=== PATIENT | male | born 1975 | race Asian ===

== ENCOUNTER 2020-04-27 16:07 | Emergency (ER) | payer MEDICAID ==
[~2020-04-27] VITALS: Ht 175.3 cm; Wt 68.0 kg
--- NOTE | 2020-04-27 16:15 | NUR ---
ED Nurse Note: Patient walked into the ED with c/o rash that started on the fingers and was moving to his lower abdomen onset 20 days. Denies fever and chills, SOB/. Patient was taking antihistamine tab and cream for the rash. Patient is AAOX4 and ambulatory.
--- NOTE | 2020-04-27 16:20 | NUR ---
ED Nurse Note: ERPA at bedside.
--- NOTE | 2020-04-27 16:36 | Emergency Room Report ---
History of Present Illness General Chief Complaint: Skin Rash/Abscess Source: Patient (Kierra Mora) Present Illness HPI 44-year-old male presents to the emergency department complaining of persistent and progressive itchy rash times approximately 20 days. Patient reports symptoms initially began between his fingers and slowly worked its way up his wrists and is now on his arms chest and inner thighs. Patient reports he has been taking qlwd-aaq-[id number] cortisone cream as well as Zyrtec with no relief of his symptoms. Pt. denies fevers, chills or swollen tender lymph nodes. Denies He denies oral lesions. Denies new medications or body washes or creams. Denies swelling of the lips, tongue , throat or airway. Denies wheezing, or shortness of breath. Denies recent travel, recent illness or ill contacts. denies blisters, oral lesions, or sloughing of the skin (Kierra Mora) Allergies: Coded Allergies: No Known Allergies (Unverified , 04/27/20) COVID-19 Screening Contact w/high risk pt: No Experienced COVID-19 symptoms?: No COVID-19 Testing performed COMMUNITY HEALTH DIRECTOR: No (Kierra Mora) Patient History Past Medical History: see triage record Past Surgical History: none Pertinent Family History: none Reviewed Nursing Documentation: PMH: Agreed; PSxH: Agreed (Kierra Mora) Nursing Documentation-PMH Past Medical History: No Stated History (Kierra Mora) Review of Systems All Other Systems: negative except mentioned in HPI (Kierra Mora) Physical Exam Vital Signs Date Time Temp Pulse Resp B/P (MAP) Pulse Ox O2 Delivery O2 Flow Rate FiO2 04/27/20 16:09 97.9 54 15 140/96 (111) 100 Room Air Sp02 EP Interpretation: reviewed, normal General Appearance: no apparent distress, alert, GCS 15, non-toxic Head: normocephalic, atraumatic Eyes: bilateral eye normal inspection, bilateral eye PERRL ENT: hearing grossly normal, normal voice, other - no oral lesions, no swelling of the lips or tongue Neck: full range of motion Respiratory: chest non-tender, lungs clear, normal breath sounds, no respiratory distress, no accessory muscle use, no wheezing, speaking full sentences, other - NO stridor Cardiovascular #1: regular rate, rhythm, no edema Musculoskeletal: normal range of motion, gait/station normal, non-tender Neurologic: alert, motor strength/tone normal, oriented x3, sensory intact, responsive, speech normal Psychiatric: judgement/insight normal, memory normal Skin: rash - Skin colored papules with notable excoriations interdigitally to both hands bilaterally, on the wrists bilaterally, on the thighs bilaterally and in the inguinal area bilaterally. No convalescence. No blisters or vesicles. No significant erythema or warmth. (Kierra Mora) Medical Decision Making PA Attestation Dr. Cowan Is my supervising Physician whom patient management has been discussed with. (Kierra Mora) Diagnostic Impression: Primary Impression: Rash and other nonspecific skin eruption Additional Impression: Scabies infestation ER Course 44-year-old male presents to the emergency department complaining of persistent and progressive itchy rash times approximately 20 days. Patient reports symptoms initially began between his fingers and slowly worked its way up his wrists and is now on his arms chest and inner thighs. Patient reports he has been taking abgd-pyz-eudnczm cortisone cream as well as Zyrtec with no relief of his symptoms. Pt. denies fevers, chills or swollen tender lymph nodes. Denies He denies oral lesions. Denies new medications or body washes or creams. Denies swelling of the lips, tongue , throat or airway. Denies wheezing, or shortness of breath. Denies recent travel, recent illness or ill contacts. denies blisters, oral lesions, or sloughing of the skin Ddx considered but are not limited to cellulitis, scabies, shingles, varicella, dermatitis, urticaria, eczema, tinea, viral exanthem, SJS Vital signs: are WNL, pt. is afebrile. H&PE are most consistent with Scabies, no evidence of secondary bacterial infection. No evidence of acute impending airway compromise or anaphylaxis. Patient is nontoxic in appearance and in no acute distress. ORDERS: none required at this time, the diagnosis is clinical ED INTERVENTIONS: None required at this time. DISCHARGE: At this time pt. is stable for d/c to home. Will provide printed patient care instructions, and any necessary prescriptions. Care plan and follow up instructions have been discussed with the patient prior to discharge. (Kierra Mora) Last Vital Signs Date Time Temp Pulse Resp B/P (MAP) Pulse Ox O2 Delivery O2 Flow Rate FiO2 04/27/20 16:09 97.9 54 15 140/96 (111) 100 Room Air (Kierra Mora) Disposition: HOME, SELF-CARE Condition: Stable Scripts Diphenhydramine Hcl (BENADRYL ALLERGY) 25 Mg Tablet 25-50 MG PO Q6HR for itching, #30 TAB Prov: Kierra Mora 04/27/20 Permethrin* (ELIMITE*) 60 Gm Cream..g. 1 APPLIC TOPIC ONCE, #60 GM 1 Refill Apply cream from head to toe; leave on for 8-14 hours before washing off with water; may reapply in 1 week if live mites appear. Prov: Kierra Mora 04/27/20 Referrals: [facility] Patient Instructions: Rash, Jjam-zx-Tbix, Scabies, Pediatric Additional Instructions: Take medications as directed. Do not drink alcohol, drive, or operate heavy machinery while taking Benadryl as this may cause drowsiness. Follow up with a Primary Care Provider in 3-5 days for DERMATOLOGY REFERRAL , even if your symptoms have resolved. --Please review list of primary care clinics, if you do not already have a primary care provider Return sooner to ED if new symptoms occur, or current symptoms become worse. - Please note that this Emergency Department Report was dictated using [employer] technology software, occasionally this can lead to erroneous entry secondary to interpretation by the dictation equipment. Kierra Mora Apr 27, 2020 16:36 Eric Cowan MD Apr 28, 2020 01:09
[2020-04-27 16:37] VITALS: BP 140/96
[2020-04-27] MEDS ORDERED: BENADRYL ALLERG25 M1 PO (16:37)
[2020-04-27] MEDS ORDERED: PERMETHRIN60 GM TOPIC (16:37)
--- NOTE | 2020-04-27 16:59 | NUR ---
ER DISCHARGE NOTE: Patient is cleared to be discharged per ERMD, pt is aox4, on room air, with stable vital signs. pt was given dc and prescription instructions, pt was able to verbalize understanding, pt id band removed. pt is able to ambulate with steady gait. pt took all belongings.
[2020-04-27 17:01] VITALS: BP 127/85
== END 2020-04-27 17:02 | disposition home or self-care (01) ==
LOC: EMR 16:24
DX: R21 Rash and other nonspecific skin eruption (principal); B86 Scabies
CPT/HCPCS: 99282